=== PATIENT | female | born 1965 | race Two or more races ===

== ENCOUNTER 2024-01-31 15:00 | Emergency (ER) | payer OTHER ==
[~2024-01-31] VITALS: Ht 167.6 cm; Wt 81.6 kg
[2024-01-31] MEDS ORDERED: PROTONIX20 MG (15:16)
[2024-01-31] MEDS ORDERED: TRAZODONE HCL150 MG (15:16)
[2024-01-31] MEDS ORDERED: OXYCODONE HCL10 M1 (15:17)
[2024-01-31 15:18] VITALS: BP 136/83; O2SAT 99
[2024-01-31] MEDS ORDERED: 0.9 % SODIUM CHLORIDE 1,000 ML IV STA (15:53)
[2024-01-31] MEDS ORDERED: MEPERIDINE HCL 25 MG/ML AMPUL IM STA (15:53)
[2024-01-31 16:40] LABS: HEMATOCRIT 46.7 % (36.0-45.00); HEMOGLOBIN 15.4 g/dL (12.0-15.00); MEAN CELL VOLUME 87.2 fL (80.00-100.00); MEAN CORPUSCULAR HEMOGLOBIN 28.8 pg (27.00-32.0); MEAN CORPUSCULAR HGB CONC 33.1 g/dl (32.0-36.0); PLATELET COUNT 369 K/uL (150-450); RED BLOOD COUNT 5.36 M/uL (4.00-6.00)
[2024-01-31 16:54] LABS: PH,URINE 6.5 (5.0-8.0); URINE APPEARANCE Clear; URINE BILIRRUBIN Negative (NEGATIVE); URINE BLOOD Negative; URINE COLOR Dark Yellow; URINE GLUCOSE Negative (NEGATIVE); URINE KETONE Trace (NEGATIVE); URINE LEUKOCYTE Trace; URINE NITRATE Negative; URINE PROTEIN Trace (NEGATIVE); URINE UROBILINOGEN 0.2 E.U./dl
[2024-01-31 16:58] LABS: URINE BACTERIA 2082.7 uL (0.0-1933); URINE EPITHELIAL CELLS 36.9 uL (0.0-38.8); URINE RBC 5.6 uL (0.0-20.8); URINE WBC 29.5 uL (0.0-23.2)
[2024-01-31 17:23] LABS: ALBUMIN 3.6 gm/dL (3.4-5.0); ALKALINE PHOSPHATASE 132 U/L (50-136); ALT/SGPT 21 U/L (12-78); ANION GAP 8 (10.0-20.0); AST/SGOT 11 U/L (15-37); BILIRUBIN TOTAL 0.29 mg/dL (0.3-1.2); BILIRUBIN,CONJUGATED < 0.10 mg/dL (0.0-0.2); BILIRUBIN,UNCONJUGATED 0.19 mg/dL (0.0-0.6); BLOOD UREA NITROGEN 10 mg/dL (7-18); BUN CREA RATIO 14 (7.0-25.0); CALCIUM 10.1 mg/dL (8.5-10.1); CARBON DIOXIDE 31 mEq/L (21-32); CHLORIDE 108 mmol/L (98-107); CREATININE SERUM 0.71 mg/dL (0.55-1.02); GFR 83.97; GLUCOSE FASTING 87 mg/dL (65-100); OSMOLALITY SERUM 283 MOSM/KG (275-295); POTASSIUM 4.23 mEq/L (3.5-5.1); SODIUM 143 mmol/L (136-145); TOTAL PROTEIN 8.1 gm/dL (6.4-8.2)
== END 2024-01-31 21:06 | disposition home or self-care (01) ==
LOC: ER 15:02
PROVIDERS: General Practice
DX: R10.9 Unspecified abdominal pain (principal); M19.90 Unspecified osteoarthritis, unspecified site; Z88.8 Allergy status to other drugs, medicaments and biological substances; K57.30 Diverticulosis of large intestine without perforation or abscess without bleeding

== ENCOUNTER 2024-03-13 20:08 | Emergency (ER) | payer OTHER ==
[~2024-03-13] VITALS: Ht 162.6 cm; Wt 77.1 kg
[~2024-03-13 20:08] MED LIST: OXYCODONE HCL10 M1; PROTONIX20 MG; TRAZODONE HCL150 MG
[2024-03-13] MEDS ORDERED: BARIUM SULFATE 450 ML ORAL.SUSP PO ONE (20:59)
[2024-03-13 21:34] LABS: HEMATOCRIT 44.1 % (36.0-45.00); HEMOGLOBIN 14.8 g/dL (12.0-15.00); MEAN CELL VOLUME 85.3 fL (80.00-100.00); MEAN CORPUSCULAR HEMOGLOBIN 28.6 pg (27.00-32.0); MEAN CORPUSCULAR HGB CONC 33.5 g/dl (32.0-36.0); PLATELET COUNT 398 K/uL (150-450); RED BLOOD COUNT 5.17 M/uL (4.00-6.00); RED CELL DISTRIBUTION WIDTH 15.3 % (11.5-14.5)
[2024-03-13 21:52] LABS: CALCIUM 9.8 mg/dL (8.5-10.1); CREATININE SERUM 0.85 mg/dL (0.55-1.02); GFR 68.22; POTASSIUM 4.43 mEq/L (3.5-5.1)
[2024-03-13 23:23] LABS: URINE APPEARANCE Cloudy; URINE BILIRRUBIN Negative (NEGATIVE); URINE BLOOD Negative; URINE COLOR Dark Yellow; URINE GLUCOSE Negative (NEGATIVE); URINE KETONE Negative (NEGATIVE); URINE LEUKOCYTE Trace; URINE NITRATE Negative; URINE PROTEIN Trace (NEGATIVE)
[2024-03-13 23:27] LABS: URINE EPITHELIAL CELLS 45.7 uL (0.0-38.8); URINE RBC 28.5 uL (0.0-20.8); URINE WBC 65.7 uL (0.0-23.2)
[2024-03-13 23:37] LABS: URINE CAST 1.17 uL (0.0-1.40); URINE CRYSTALS MANY /HPF; URINE MUCUS MODERATE
[2024-03-13] MEDS ORDERED: MEPERIDINE HCL 25 MG/ML AMPUL IV ONE (23:45)
[2024-03-14] MEDS ORDERED: CIPROFLOXACIN IN 5 % DEXTROSE 400 MG/200 ML PIGGYBAG IV STA (03:51)
[2024-03-14] MEDS ORDERED: MEPERIDINE HCL/PF 25 MG/ML VIAL IV STA (03:51)
[2024-03-14] MEDS ORDERED: CIPROFLOXACIN IN 5 % DEXTROSE 400 MG/200 ML PIGGYBAG IV ONE (03:54)
[2024-03-14] MEDS ORDERED: LEVSIN/SL0.125 MG SL ×2 (07:59→08:00)
[2024-03-14] MEDS ORDERED: CIPRO500 MG PO (07:59)
[2024-03-14] MEDS ORDERED: PEPCID40 MG PO (07:59)
[2024-03-14] MEDS ORDERED: METRONIDAZOLE500 MG PO (07:59)
[2024-03-14] MEDS ORDERED: INTESTINEX680 M2 PO (07:59)
[2024-03-14] MEDS ORDERED: ZOFRAN8 MG PO (07:59)
== END 2024-03-14 08:07 ==
LOC: ER 20:10
PROVIDERS: Emergency Medicine
DX: K57.30 Diverticulosis of large intestine without perforation or abscess without bleeding (principal); R10.9 Unspecified abdominal pain; Z88.8 Allergy status to other drugs, medicaments and biological substances
CPT/HCPCS: 36415; 74177; 96365; 99284; J0744; J2175; J3490; Q9965

== ENCOUNTER 2024-05-29 00:56 | Emergency (ER) | payer OTHER ==
[~2024-05-29] VITALS: Ht 162.6 cm; Wt 77.1 kg
[~2024-05-29 00:56] MED LIST changes: +CIPRO500 MG PO; +INTESTINEX680 M2 PO; +LEVSIN/SL0.125 MG SL; +METRONIDAZOLE500 MG PO; +PEPCID40 MG PO; +ZOFRAN8 MG PO
[2024-05-29] MEDS ORDERED: 0.9 % SODIUM CHLORIDE 1,000 ML IV STA (02:39)
[2024-05-29] MEDS ORDERED: MORPHINE SULFATE 4 MG/ML VIAL IV STA (02:40)
[2024-05-29] MEDS ORDERED: HYOSCYAMINE SULFATE 0.125 MG TAB.SUBL SL ONE (02:45)
[2024-05-29] MEDS ORDERED: HYOSCYAMINE SULFATE 0.125 MG TAB.SUBL ONE (03:04)
[2024-05-29 03:28] LABS: HEMATOCRIT 42.7 % (36.0-45.00); HEMOGLOBIN 13.9 g/dL (12.0-15.00); MEAN CELL VOLUME 86.5 fL (80.00-100.00); MEAN CORPUSCULAR HEMOGLOBIN 28.2 pg (27.00-32.0); MEAN CORPUSCULAR HGB CONC 32.6 g/dl (32.0-36.0); PLATELET COUNT 358 K/uL (150-450); RED BLOOD COUNT 4.93 M/uL (4.00-6.00); RED CELL DISTRIBUTION WIDTH 15.1 % (11.5-14.5)
[2024-05-29 03:35] LABS: INR 0.94; PARTIAL THROMBOPLASTIN TIME 28.6 SECONDS (22.0-34.0); PROTHROMBIN TIME 10.3 SECONDS (9.0-11.5)
[2024-05-29 04:10] LABS: CALCIUM 9.3 mg/dL (8.5-10.1); CREATININE SERUM 0.82 mg/dL (0.55-1.02); GFR 71.11; POTASSIUM 4.08 mEq/L (3.5-5.1)
== END 2024-05-29 07:05 | disposition home or self-care (01) ==
LOC: ER 00:59
DX: R10.32 Left lower quadrant pain (principal); K59.01 Slow transit constipation; Z88.8 Allergy status to other drugs, medicaments and biological substances
CPT/HCPCS: 36415; 74176; 96365; 96366; 99284; J2270; J7030